=== PATIENT | female | born 1975 | race African-American/Black ===

== ENCOUNTER 2017-01-30 12:12 | Emergency (ER) | payer OTHER ==
[~2017-01-30] VITALS: Ht 162.6 cm; Wt 120.0 kg
[~2017-01-30 12:12] MED LIST: BENZ1TAB PO; CITA20TA4 PO; HALO1 PO; HALO100P IM; SERO50TA4 PO
[2017-01-30 12:17] VITALS: BP 123/75; PULSE 90; RESP 20; TEMP 98.9; O2SAT 100
--- NOTE | 2017-01-30 12:40 | PD ---
HPI Chief Complaint: GI Complaint Time Seen by Provider: 12:39 Travel History International Travel<30 days: No Contact w/Intl Traveler<30days: No Traveled to known affect area: No PFSH Past Medical History Anxiety: Yes Depression: Yes Diminished Hearing: No Immunizations Current: Yes Schizophrenia: Yes Social History Alcohol Use: No Tobacco Use: No Substance Use: No Allergies-Medications (Allergen,Severity, Reaction): Coded Allergies: penicillin G (Unverified Allergy, Severe, Anaphylaxis, 10/31/16) TONGUE SWELLING Reported Meds & Prescriptions Reported Meds & Active Scripts Active Reported Cogentin (Benztropine Mesylate) 1 Mg Tab 1 Mg PO BID Haldol (Decanoate) 100 mg Ampule (Haloperidol Decanoate) 100 Mg/Ml Inj 50 Mg IM Q28D Haldol (Haloperidol) 1 Mg Tab Unknown Dose PO BID Seroquel XR 50 mg (Quetiapine Fumarate) 50 Mg Tab 25 Mg PO HS Citalopram Hydrobromide 20 Mg Tab 20 Mg PO DAILY Data Data Last Documented VS Vital Signs Date Time Temp Pulse Resp B/P (MAP) Pulse Ox O2 Delivery O2 Flow Rate FiO2 01/30/17 12:17 98.9 90 20 123/75 (91) 100 Orders Orders Al-Mag Hy-Si 40-40-4 Mg/Ml Liq (Mag-Al P (01/30/17 12:45) Lidocaine 2% Viscous (Xylocaine 2% Visco (01/30/17 12:45) Electrocardiogram (01/30/17 ) Diane Shepherd Jan 30, 2017 12:40
[2017-01-30] MEDS ORDERED: LIDOCAINE VISCOUS 2% SOLN 15 ML UDC PO ONE (12:45)
[2017-01-30] MEDS ORDERED: ALUMINUM/MAGNESIUM/SIMETH 30 ML CUP PO ONE (12:45)
--- NOTE | 2017-01-30 13:48 | PD ---
Physical Exam Time Seen by Provider: 13:46 Narrative PT WAS BROUGHT IN BY [facility]AC FOR EVALUATION OF A CHEST PAIN THAT DEVELOPED AFTER SWALLOWING A BITE OF PB&J. PT SAYS THE PAIN IS LESS NOW AND FEELS BETTER WHEN SHE DRINKS OR SWALLOWS. APPEARS WELL. VSS Data Data Last Documented VS Vital Signs Date Time Temp Pulse Resp B/P (MAP) Pulse Ox O2 Delivery O2 Flow Rate FiO2 01/30/17 12:17 98.9 90 20 123/75 (91) 100 Orders Orders Al-Mag Hy-Si 40-40-4 Mg/Ml Liq (Mag-Al P (01/30/17 12:45) Lidocaine 2% Viscous (Xylocaine 2% Visco (01/30/17 12:45) Electrocardiogram (01/30/17 ) Ed Discharge Order (01/30/17 14:56) [facility] Medical Record Reviewed: Yes Supervised Visit with KAREEN: No Narrative Course PT GIVEN GI COCKTAIL IN TRIAGE. UPON REASSESSMENT PAIN IS MUCH BETTER. VSS. I SPOKE WITH SCOUT THE DIRECTOR OF THE PATIENT'S HOME AND UPDATED HIM. PT WILL BE SEEN AND DISCHARGED THROUGH THE FAST TRACK AREA. Condition: Stable Diane Shepherd Jan 30, 2017 13:48
--- NOTE | 2017-01-30 14:46 | PD ---
HPI Chief Complaint: GI Complaint Time Seen by Provider: 14:27 Travel History International Travel<30 days: No Contact w/Intl Traveler<30days: No Traveled to known affect area: No History of Present Illness HPI 41-year-old female with some sort of developmental delay presents to the emergency department complaining of pain after swallowing a peanut butter and jelly sandwich. States that her pain is located in the midsternal region and is tender to palpation. Says the janet Patient she denies any abnormal shortness of breath or constant chest pain. Patient states he has chronic back pain secondary to pendulous breasts. Patient denies radiation of pain. States that she does have a history of a fast heart rate that is unable to me what exact she stopped about. PFSH Past Medical History Anxiety: Yes Depression: Yes Diminished Hearing: No Immunizations Current: Yes Schizophrenia: Yes ?: Not Social History Alcohol Use: No Tobacco Use: No Substance Use: No Allergies-Medications (Allergen,Severity, Reaction): Coded Allergies: penicillin G (Unverified Allergy, Severe, Anaphylaxis, 10/31/16) TONGUE SWELLING Reported Meds & Prescriptions Reported Meds & Active Scripts Active Reported Cogentin (Benztropine Mesylate) 1 Mg Tab 1 Mg PO BID Haldol (Decanoate) 100 mg Ampule (Haloperidol Decanoate) 100 Mg/Ml Inj 50 Mg IM Q28D Haldol (Haloperidol) 1 Mg Tab Unknown Dose PO BID Seroquel XR 50 mg (Quetiapine Fumarate) 50 Mg Tab 25 Mg PO HS Citalopram Hydrobromide 20 Mg Tab 20 Mg PO DAILY Review of Systems Except as stated in HPI: all other systems reviewed are Neg Physical Exam Narrative GENERAL: Well-nourished, well-developed patient. SKIN: Focused skin assessment warm/dry. HEAD: Normocephalic. EYES: No scleral icterus. No injection or drainage. NECK: Supple, trachea midline. No JVD or lymphadenopathy. CARDIOVASCULAR: Regular rate and rhythm without murmurs, gallops, or rubs. No S3 or S4. RESPIRATORY: Breath sounds equal bilaterally. No accessory muscle use. No wheeze , rhonchi, rales. GASTROINTESTINAL: Abdomen soft, non-tender, nondistended MUSCULOSKELETAL: No cyanosis, or edema. Mild TTP to upper chest wall. Exam somewhat limited to body habitus. BACK: Nontender without obvious deformity. No CVA tenderness. Data Data Last Documented VS Vital Signs Date Time Temp Pulse Resp B/P (MAP) Pulse Ox O2 Delivery O2 Flow Rate FiO2 01/30/17 12:17 98.9 90 20 123/75 (91) 100 Orders Orders Al-Mag Hy-Si 40-40-4 Mg/Ml Liq (Mag-Al P (01/30/17 12:45) Lidocaine 2% Viscous (Xylocaine 2% Visco (01/30/17 12:45) Electrocardiogram (01/30/17 ) Ed Discharge Order (01/30/17 14:56) [facility] Medical Decision Making Medical Screen Exam Complete: Yes Emergency Medical Condition: Yes Differential Diagnosis Costochondritis versus chest wall contusion versus esophagitis versus Narrative Course 41 y female with chest discomfort after eating a peanut butter and jelly sandwich. Patient H&P consistent with a noncardiac etiology. After extensive questioning and discussion, it appears as if she ate her peanut butter and jelly sandwich rather quickly and developed this pain, similar to previous episodes. She denies any associated symptoms such as nausea, dizziness, diaphoresis, previous cardiac history, unusual shortness of breath. Note that patient was morbidly obese and has shortness of breath with minimal activity secondary to poor fitness level (pt admitted to this). The tenderness upon palpation of the chest was chronic for her. She has pendulous breasts and is due for a reduction because of back pain and breast discomfort. Pt had no pain at discharge and felt great to go home. EKG unchanged from previous. I explained to patient to take smaller bites of her food and slow down when eating. Continue her weight loss journey. Pt understood and agreed with our evaluation. Will diagnose with costochondritis as a nonspecific cause with a non-cardiac etiology and multiple contributions (including morbid obesity and improper feeding habits.) Diagnosis Primary Impression: Costochondritis Referrals: Primary Care Physician Additional Instructions: Follow-up with your primary care physician within 2-3 days. Disposition: 01 DISCHARGE HOME Condition: Stable Keya Parson Jan 30, 2017 14:46
--- NOTE | 2017-01-30 21:38 | EKG ---
Date Performed: 01/30/2017 Time Performed: 14:07:14 PTAGE: 41 years EKG: Sinus rhythm MINIMAL VOLTAGE CRITERIA FOR LVH, CONSIDER NORMAL VARIANT BORDERLINE ECG PREVIOUS TRACING : 07/04/2015 17.53 Compared to prior tracing no significant change DOCTOR: Meche Mallory Interpretating Date/Time 01/30/2017 21:36:38
== END 2017-01-30 15:27 | disposition home or self-care (01) ==
LOC: NEPK 12:12
DX: M94.0 Chondrocostal junction syndrome [Tietze] (principal); E66.01 Morbid (severe) obesity due to excess calories; F41.9 Anxiety disorder, unspecified; F20.9 Schizophrenia, unspecified; Z79.899 Other long term (current) drug therapy; Z88.0 Allergy status to penicillin
CPT/HCPCS: 93005; 99283

== ENCOUNTER 2017-08-12 17:01 | Emergency (ER) | payer OTHER ==
[~2017-08-12] VITALS: Ht 162.6 cm; Wt 120.0 kg
[2017-08-12 17:09] VITALS: BP 137/76; PULSE 94; RESP 20; TEMP 98.4; O2SAT 100
[2017-08-12 17:45] VITALS: BP 108/55; PULSE 86; RESP 18; O2SAT 100
[2017-08-12] MEDS ORDERED: ABIL10TA8 PO (17:45)
[2017-08-12] MEDS ORDERED: PALI234P IM (17:45)
[2017-08-12] MEDS ORDERED: DIVA250ER PO (17:45)
[2017-08-12] MEDS ORDERED: BENZ1INJ2 (17:45)
[2017-08-12] MEDS ORDERED: CITA20TA4 PO (17:45)
[2017-08-12] MEDS ORDERED: SODIUM CHLOR 0.9% 1000 ML INJ 1,000 ML IV SCH (17:47)
[2017-08-12] MEDS ORDERED: ONDANSETRON ODT 4 MG TAB PO ONE (18:00)
[2017-08-12] MEDS ORDERED: MORPHINE SULFATE 4 MG/ML INJ IV PUSH ONE (18:00)
[2017-08-12 18:28] VITALS: BP 109/60; PULSE 79; RESP 18; O2SAT 99
[2017-08-12 18:46] LABS: AUTOMATED NEUTROPHIL # 4.8 TH/MM3 (1.8-7.7); BASOPHIL # 0.1 TH/MM3 (0-0.2); BASOPHIL % 0.7 % (0.0-2.0); EOSINOPHIL % 0.5 % (0.0-4.0); HEMATOCRIT 40.7 % (35.0-46.0); HEMOGLOBIN 13.3 GM/DL (11.6-15.3); LYMPH % 32.3 % (9.0-44.0); LYMPHOCYTE # 2.8 TH/MM3 (1.0-4.8); MEAN CELL VOLUME 84.3 FL (80.0-100.0); MEAN CORPUSCULAR HEMOGLOBIN 27.6 PG (27.0-34.0); MEAN CORPUSCULAR HGB CONC 32.7 % (32.0-36.0); MEAN PLATELET VOLUME 9.2 FL (7.0-11.0); MONO % 11.3 % (0.0-8.0); NEUT % 55.2 % (16.0-70.0); PLATELET COUNT 295 TH/MM3 (150-450); RED BLOOD COUNT 4.82 MIL/MM3 (4.00-5.30); RED CELL DISTRIBUTION WIDTH 13.3 % (11.6-17.2); WHITE BLOOD COUNT 8.8 TH/MM3 (4.0-11.0)
[2017-08-12 18:57] LABS: BACTERIA, URINE RARE /hpf; BILIRUBIN, URINE NEG (NEG); BLOOD, URINE NEG (NEG); GLUCOSE,URINE NEG (NEG); KETONE, URINE 10 mg/dL (NEG); MUCUS URINE MOD /lpf (OCC); NITRITE,URINE NEG (NEG); SQUAMOUS EPITHELIAL CELL URINE 12 /hpf (0-5); URINE COLOR YELLOW (YELLW/STRAW); URINE LEUKOCYTE ESTERASE SMALL (NEG)
[2017-08-12 18:59] LABS: ALBUMIN 3.3 GM/DL (3.4-5.0); AST (GOT) 16 U/L (15-37); BLOOD UREA NITROGEN 7 MG/DL (7-18); CALCIUM 8.7 MG/DL (8.5-10.1); CHLORIDE 107 MEQ/L (98-107); CREATININE 0.91 MG/DL (0.50-1.00); GLOMERULAR FILTRATION RATE 82 ML/MIN (>89); GLUCOSE,RANDOM 93 MG/DL (74-106); SODIUM (NA) 141 MEQ/L (136-145)
[2017-08-12 19:00] LABS: ALT (GPT) 18 U/L (10-53)
[2017-08-12 19:03] LABS: ALKALINE PHOSPHATASE 74 U/L (45-117); TOTAL BILIRUBIN ADULT 0.3 MG/DL (0.2-1.0); TOTAL PROTEIN 8.1 GM/DL (6.4-8.2)
--- NOTE | 2017-08-12 19:53 | RADRPT ---
EXAM DATE: 08/12/2017 7:47 PM EDT AGE/SEX: 42 years / Female INDICATIONS: Right flank pain for four days. CLINICAL DATA: This is the patient's initial encounter. Patient reports that signs and symptoms have been present for 4 - 6 days and indicates a pain score of 7/10. MEDICAL/SURGICAL HISTORY: None. None. RADIATION DOSE: 17.08 CTDI (mGy) ; Patient body habitus COMPARISON: No prior [place] exams available for comparison. TECHNIQUE: Multiple contiguous axial images were obtained through the abdomen. Images were obtained using multiple row detector helical technique. Using dose reduction techniques, radiation dose was ke pt as low as reasonably achievable to obtain optimal diagnostic quality images. FINDINGS: Lower Lungs: The visualized lower lungs are clear. Liver: The liver has a homogeneous density without space-occupying lesion. There is no dilation of th e biliary tree. Small calcified stones are identified in the gallbladder. Spleen: Homogeneous density without enlargement. Pancreas: Unremarkable without mass or calcification. Kidneys: Normal in size and shape. No evidence of mass or hydronephrosis. Adrenal Glands: Unremarkable. Aorta: The aorta and proximal iliac vessels are grossly unremarkable without aneurysmal dilation. Bowel/Mesentery: The bowel loops are grossly unremarkable. The cecum and sigmoid colon have a normal configuration. Abdominal Wall: Intact. Retroperitoneum: No evidence of adenopathy in the retrocrural, para-aortic, or deep pelvic regions. Bladder: Contours are smooth. Reproductive Organs: No abnormal masses or calcifications seen. Inguinal: The inguinal region is unremarkable without evidence of adenopathy. Bony Structures: Unremarkable. CONCLUSION: 1. Cholelithiasis 2. No evidence of nephrolithiasis or obstructive uropathy 3. No acute abnormality noted. Electronically signed by: Ryan Mahoney MD 08/12/2017 7:51 PM EDT
[2017-08-12] MEDS ORDERED: ZOFR4TAB3 SL (20:24)
[2017-08-12] MEDS ORDERED: HYDR-3516 PO (20:24)
[2017-08-12] MEDS ORDERED: CIPR-9 PO (20:28)
--- NOTE | 2017-08-12 20:46 | PD ---
HPI Chief Complaint: GI Complaint Time Seen by Provider: 17:47 Travel History International Travel<30 days: No Contact w/Intl Traveler<30days: No Traveled to known affect area: No History of Present Illness HPI 42-year-old female that presents to the ED for evaluation of right flank pain. Per patient she has had this for the past 3-4 days. Per patient has had some nausea and vomiting with it. Per patient the pain is 10 out of 10 and is significant worse with movement. She denies any history of kidney stones. She states that she is having some bowel movement or urinary issues. She denies any blood in her urine however. She denies any fevers chills or sweats. Patient is somewhat of a poor historian secondary to what appears to be psychiatric illness. She has been here before for psychiatric evaluation. When I evaluated the patient patient does not appear to be in a lot of discomfort. Per patient the pain is mainly in the right flank and does not radiate. No abdominal pain. No surgeries to her abdomen. Allergy to penicillin. Denies any chest pain or shortness of breath. Denies . No other medical issues. She has not taken anything for this. Pain is worse with movement. PFSH Past Medical History Anxiety: Yes Depression: Yes Diminished Hearing: No Immunizations Current: Yes Schizophrenia: Yes ?: Not Social History Alcohol Use: No Tobacco Use: No Substance Use: No Allergies-Medications (Allergen,Severity, Reaction): Coded Allergies: penicillin G (Verified Allergy, Severe, Anaphylaxis, 08/12/17) TONGUE SWELLING Reported Meds & Prescriptions Reported Meds & Active Scripts Active Cipro (Ciprofloxacin HCl) 500 Mg Tab 500 Mg PO BID 10 Days Zofran Odt (Ondansetron Odt) 4 Mg Tab 4 Mg SL Q6HR PRN Hydrocodone-Acetaminophen 5-325 mg Tab 1 Tab PO Q6H PRN Reported Benztropine Mesylate 2 Mg/2 Ml Vial Invega Sustenna Inj (Paliperidone Palmitate) 234 Mg/1.5 Ml Inj 234 Mg IM Q28D Depakote ER (Divalproex Sodium) 250 Mg Gregory 250 Mg PO DAILY Citalopram (Citalopram Hydrobromide) 20 Mg Tab 20 Mg PO DAILY Abilify (Aripiprazole) 10 Mg Tab 5 Mg PO DAILY Review of Systems Except as stated in HPI: all other systems reviewed are Neg Physical Exam Narrative GENERAL: SKIN: Warm and dry. HEAD: Atraumatic. Normocephalic. EYES: Pupils equal and round. No scleral icterus. No injection or drainage. ENT: No nasal bleeding or discharge. Mucous membranes pink and moist. Tongue is midline. No uvula deviation. NECK: Trachea midline. No JVD. CARDIOVASCULAR: Regular rate and rhythm. No murmurs, S3, S4. RESPIRATORY: No accessory muscle use. Clear to auscultation. Breath sounds equal bilaterally. GASTROINTESTINAL: Abdomen soft, non-tender, nondistended. Hepatic and splenic margins not palpable. MUSCULOSKELETAL: Extremities without clubbing, cyanosis, or edema. No obvious deformities. Full range of motion of the upper and lower extremities bilaterally. Patient does have reproducible right flank pain noted with touch. No lumbar, thoracic NEUROLOGICAL: Awake and alert. No obvious cranial nerve deficits. Motor grossly within normal limits. Five out of 5 muscle strength in the arms and legs. Normal speech. PSYCHIATRIC: Appropriate mood and affect; insight and judgment normal. Data Data Last Documented VS Vital Signs Date Time Temp Pulse Resp B/P (MAP) Pulse Ox O2 Delivery O2 Flow Rate FiO2 08/12/17 18:28 79 18 109/60 (76) 99 Room Air 08/12/17 17:09 98.4 Orders Orders Complete Blood Count With Diff (08/12/17 17:47) Comprehensive Metabolic Panel (08/12/17 17:47) Lipase (08/12/17 17:47) Urinalysis - C+S If Indicated (08/12/17 17:47) Ct Abd/Pel W/O Iv Contrast (08/12/17 17:47) Iv Access Insert/Monitor (08/12/17 17:47) Ecg Monitoring (08/12/17 17:47) Morphine Inj (Morphine Inj) (08/12/17 18:00) Sodium Chlor 0.9% 1000 Ml Inj (Ns 1000 M (08/12/17 17:47) Ed Urine Pregnancytest Poc (08/12/17 17:47) Ondansetron Odt (Zofran Odt) (08/12/17 18:00) Ed Discharge Order (08/12/17 20:28) Labs Laboratory Tests Test 08/12/17 18:35 White Blood Count 8.8 TH/MM3 Red Blood Count 4.82 MIL/MM3 Hemoglobin 13.3 GM/DL Hematocrit 40.7 % Mean Corpuscular Volume 84.3 FL Mean Corpuscular Hemoglobin 27.6 PG Mean Corpuscular Hemoglobin Concent 32.7 % Red Cell Distribution Width 13.3 % Platelet Count 295 TH/MM3 Mean Platelet Volume 9.2 FL Neutrophils (%) (Auto) 55.2 % Lymphocytes (%) (Auto) 32.3 % Monocytes (%) (Auto) 11.3 % Eosinophils (%) (Auto) 0.5 % Basophils (%) (Auto) 0.7 % Neutrophils # (Auto) 4.8 TH/MM3 Lymphocytes # (Auto) 2.8 TH/MM3 Monocytes # (Auto) 1.0 TH/MM3 Eosinophils # (Auto) 0.0 TH/MM3 Basophils # (Auto) 0.1 TH/MM3 CBC Comment DIFF FINAL Differential Comment Urine Color YELLOW Urine Turbidity HAZY Urine pH 6.0 Urine Specific [place] 1.015 Urine Protein TRACE mg/dL Urine Glucose (UA) NEG mg/dL Urine Ketones 10 mg/dL Urine Occult Blood NEG Urine Nitrite NEG Urine Bilirubin NEG Urine Urobilinogen LESS THAN 2.0 MG/DL Urine Leukocyte Esterase SMALL Urine RBC 1 /hpf Urine WBC 6 /hpf Urine Squamous Epithelial Cells 12 /hpf Urine Bacteria RARE /hpf Urine Mucus MOD /lpf Microscopic Urinalysis Comment CULT NOT INDICATED Blood Urea Nitrogen 7 MG/DL Creatinine 0.91 MG/DL Random Glucose 93 MG/DL Total Protein 8.1 GM/DL Albumin 3.3 GM/DL Calcium Level 8.7 MG/DL Alkaline Phosphatase 74 U/L Aspartate Amino Transf (AST/SGOT) 16 U/L Alanine Aminotransferase (ALT/SGPT) 18 U/L Total Bilirubin 0.3 MG/DL Sodium Level 141 MEQ/L Potassium Level 3.4 MEQ/L Chloride Level 107 MEQ/L Carbon Dioxide Level 23.0 MEQ/L Anion Gap 11 MEQ/L Estimat Glomerular Filtration Rate 82 ML/MIN Lipase 98 U/L [facility] Medical Decision Making Medical Screen Exam Complete: Yes Emergency Medical Condition: Yes Medical Record Reviewed: Yes Interpretation(s) CBC & BMP Diagram 08/12/17 18:35 Total Protein 8.1, Albumin 3.3 L, Calcium Level 8.7, Alkaline Phosphatase 74, Aspartate Amino Transf (AST/SGOT) 16, Alanine Aminotransferase (ALT/SGPT) 18, Total Bilirubin 0.3 Last Impressions Abdomen/Pelvis CT 08/12/17 [id number] Signed Impressions: CONCLUSION: 1. Cholelithiasis 2. No evidence of nephrolithiasis or obstructive uropathy 3. No acute abnormality noted. UA shows signs of infection Differential Diagnosis Kidney stone versus kidney infection versus UTI versus muscle strain versus gallbladder disease Narrative Course 42-year-old female that presents to the ED for evaluation of right flank pain. Patient was properly examined and was found to have signs and symptoms which appear to be concerning for kidney stone. Labs and imaging order. Labs and imaging show what appears to be cholelithiasis but no sign of cholecystitis and what appears to be possible UTI. No sign of kidney stone or blood in the urine. Patient was reassured. This time patient was given pain medication with some relief of the pain. She will be discharged home with prescriptions for pain medications as well as Cipro for infection. Told to follow-up closely with PCP. See ED if worsening symptoms. Diagnosis Primary Impression: Flank pain, acute Additional Impressions: Gallbladder calculus Qualified Codes: K80.20 - Calculus of gallbladder without cholecystitis without obstruction UTI (urinary tract infection) Qualified Codes: N30.00 - Acute cystitis without hematuria Patient Instructions: General Instructions, Narcotic given in the ED Additional Instructions: Take meds as prescribed. Follow up with PCP. See ED if worst. Do not drink or drive while taking pain meds Med/Other Pt SpecificInfo: Prescription(s) given Scripts Ciprofloxacin (Cipro) 500 Mg Tab 500 MG PO BID for Infection for 10 Days, #20 TAB 0 Refills Prov: Kiana Carlton MD 08/12/17 Ondansetron Odt (Zofran Odt) 4 Mg Tab 4 MG SL Q6HR Y for Nausea/Vomiting, #20 TAB 0 Refills Prov: Kiana Carlton MD 08/12/17 Hydrocodone-Acetaminophen (Hydrocodone-Acetaminophen) 5-325 mg Tab 1 TAB PO Q6H Y for PAIN, #10 TAB 0 Refills Prov: Kiana Carlton MD 08/12/17 Disposition: 01 DISCHARGE HOME Condition: Stable Riccardo Reece August 12, 2017 20:46
== END 2017-08-12 21:52 | disposition home or self-care (01) ==
LOC: NEPE 17:01
DX: K80.20 Calculus of gallbladder without cholecystitis without obstruction (principal); N30.00 Acute cystitis without hematuria; F20.9 Schizophrenia, unspecified
CPT/HCPCS: 74176; 80053; 81001; 83690; 84703; 85025; 96374; 99284; J2270; J7030